=== PATIENT | female | born 1930 | race Caucasian/White ===

== ENCOUNTER 2016-04-01 14:32 | Emergency (ER) | payer OTHER ==
[~2016-04-01] VITALS: Ht 154.9 cm; Wt 48.3 kg
[2016-04-01] MEDS ORDERED: VENTOLIN HFA18 GM IH (14:47)
[2016-04-01] MEDS ORDERED: ROBITUSSIN100 MG/5 M PO (14:50)
[2016-04-01 22:50] VITALS: BP 175/92
== END 2016-04-01 22:51 | disposition home or self-care (01) ==
LOC: EME 14:32
DX: S30.0XXA Contusion of lower back and pelvis, initial encounter (principal); M25.561 Pain in right knee; M25.551 Pain in right hip; W18.39XA Other fall on same level, initial encounter; G30.9 Alzheimer's disease, unspecified; F02.80 Dementia in other diseases classified elsewhere, unspecified severity, without behavioral disturbance, psychotic disturbance, mood disturbance, and anxiety; Z96.641 Presence of right artificial hip joint
CPT/HCPCS: 72220; 73502; 73564; 93005; 99281; 99285; J3010